=== PATIENT | male | born 2000 | race Caucasian/White ===

== ENCOUNTER → 2021-09-22 | Outpatient (CLI) | payer OTHER ==
[~2021-09-22] MED LIST: IOHEXOL 350 MG/ML 100 ML VIAL. IV ONE
--- NOTE | 2021-09-22 11:33 | RAD ---
CTA CHEST History: Chest pain. Comparison: None. Technique: CTA of the pulmonary arteries with intravenous contrast. 3-D postprocessing was performed. Findings: Pulmonary arteries: No pulmonary embolism Aorta and great vessels: No aneurysm or dissection of the aortic arch or thoracic aorta. Thyroid: No significant abnormalities. Mediastinum and alexi: No mediastinal masses or adenopathy is seen. Esophagus: The visualized esophagus is normal. Heart: The heart is normal in size. There is no pericardial effusion. Airways, Lungs, Pleura: Central airways are patent. No airspace consolidation, effusion or pneumothor ax. Incidental 3 mm left upper lobe fissural lymph node. Upper abdomen: Hypoattenuation of the liver compatible steatosis. Osseous structures and soft tissues: Within normal limits for age. Impression: 1. No pulmonary embolism. No airspace consolidation. 2. Hepatic steatosis. ------ Exposure: One or more of the following individualized dose reduction techniques were utilized for thi s examination: 1. Automated exposure control 2. Adjustment of the mA and/or kV according to patient size 3. Use of iterative reconstruction technique. Electronically signed by: Lyle López MD (09/22/2021 11:31 AM) [id number]
--- NOTE | 2021-09-24 16:06 | CARD ---
MR#: [id number] Date of Study: 09/22/2021 Ordering Physician: JOSE MANUEL DOMINGUEZ, Referring Physician: JOSE MANUEL DOMINGUEZ, Tech: Kevin Caruso [facility] APPROVED REPORT EXAM: Two-dimensional and M-mode echocardiogram with Doppler and color Doppler. Other Information Quality : AverageHR: 62bpm Rhythm : NSR INDICATION Chest Pain 2D DIMENSIONS Left Atrium(2D)3.4 (1.6-4.0cm)IVSd0.8 (0.7-1.1cm) Aortic Root(2D)2.4 (2.0-3.7cm)LVDd4.4 (3.9-5.9cm) LVOT Diameter2.1 (1.8-2.4cm)PWd0.8 (0.7-1.1cm) LA Acnwcx68 (18-58mL)LVDs3.2 (2.5-4.0cm) FS (%) 27.8 %SV48.5 ml LVEF(%)54.1 (>50%) Aortic Valve AoV Peak Aries.122.2cm/sAoV VTI22.2cm AO Peak GR.6.0mmHgLVOT Peak Aries.93.9cm/s LVOT VTI 18.11cmAO Mean GR.3mmHg SHABNAM (VMAX)2.02yy4OIJ (VTI)2.85cm2 AI P 1/2 Umcm350at Mitral Valve MV E Cjhunwmr71.0cm/sMV DECEL LNDT903oa MV A Yxyyaxfj01.3cm/sMV KZK69rv E/A Ratio1.7MVA (PHT)4.15cm2 TDI E/Lateral E'6.1E/Medial E'10.7 Pulmonary Valve PV Peak Apgglcrb10.6cm/sPV Peak Grad.3mmHg Tricuspid Valve TR P. Bzemnddi513uw/sTR Peak Gr.15mmHg Pulmonary Vein S1 Kuqqnwdr89.9cm/sD2 Bybqkdaj60.7cm/s LEFT VENTRICLE The left ventricle is normal size. There is normal left ventricular wall thickness. The left ventricu lar systolic function is normal and the ejection fraction is within normal range. EF 55% There is nor mal LV segmental wall motion. The left ventricular diastolic function and filling is normal for age. No left ventricle thrombus noted on this study. There is no ventricular septal defect visualized. The re is no left ventricular aneurysm. There is no mass noted in the left ventricle. RIGHT VENTRICLE The right ventricle is normal size. There is normal right ventricular wall thickness. The right ventr icular systolic function is normal. ATRIA The left atrium size is normal. The right atrium size is normal. The interatrial septum is intact wit h no evidence for an atrial septal defect or patent foramen ovale as noted on 2-D or Doppler imaging. AORTIC VALVE The aortic valve is bicuspid. Doppler and Color Flow revealed mild aortic regurgitation. There is no significant aortic valvular stenosis. There is no aortic valvular vegetation. MITRAL VALVE The mitral valve is normal in structure and function. There is no evidence of mitral valve prolapse. There is no mitral valve stenosis. Doppler and Color-flow revealed trace to mild mitral regurgitation . TRICUSPID VALVE The tricuspid valve is normal in structure and function. Doppler and Color Flow revealed mild tricusp id regurgitation. The PA pressure was estimated at 22 mmHg. There is no tricuspid valve prolapse or v egetation. There is no tricuspid valve stenosis. PULMONIC VALVE Doppler and Color Flow revealed no pulmonic valvular regurgitation. There is no pulmonic valvular jada nosis. GREAT VESSELS The aortic root is normal in size. The ascending aorta is normal in size. The IVC is normal in size a nd collapses >50% with inspiration. PERICARDIAL EFFUSION There is no pleural effusion. There is no evidence of significant pericardial effusion. Critical Notification Critical Value: No <Conclusion> The left ventricular systolic function is normal and the ejection fraction is within normal range. EF 55% There is normal LV segmental wall motion. The aortic valve is bicuspid. Doppler and Color Flow revealed mild aortic regurgitation. Signed by : Jose Manuel Dominguez, Electronically Approved : 09/24/2021 16:06:42
== END ==
LOC: ECHO 09:39
PROVIDERS: ATTEND Internal Medicine Cardiovascular Disease
DX: I08.3 Combined rheumatic disorders of mitral, aortic and tricuspid valves (principal); K76.0 Fatty (change of) liver, not elsewhere classified
CPT/HCPCS: 71275; 93306; Q9967; C8929